=== PATIENT | male | born 1955 | race Two or more races ===

== ENCOUNTER 2024-04-15 20:25 | Emergency (ER) | payer OTHER ==
[~2024-04-15] VITALS: Ht 185.4 cm; Wt 104.5 kg
[2024-04-15] MEDS ORDERED: fentaNYL CITRATE 100 MCG/2 ML VL IM ONE (21:00)
[2024-04-15 21:34] LABS: Eosinophils # (auto) 0.3 10 ^3/uL (0-0.8); Eosinophils % (auto) 2.7 % (0.0-7.0); Hemoglobin 11.3 g/dL (13.5-17.5); Lymphocytes # (auto) 3.6 10 ^3/uL (0.4-5.4); Monocytes # (auto) 0.8 10 ^3/uL (0-1.3); Nucleated Red Blood Cells % 0.1 %
[2024-04-15 21:36] LABS: Basophils # (auto) 0.2 10 ^3/uL (0-0.2); Basophils % (auto) 1.8 % (0.0-2.0); Hematocrit 34.1 % (41.0-53.0); Lymphocytes % (auto) 36.6 % (10.0-50.0); Mean Corpuscular Hemoglobin 26.8 pg (28.0-32.0); Mean Corpuscular Hgb Conc. 33.1 g/dL (32.0-36.0); Mean Corpuscular Volume 80.9 fL (80.0-100.0); Monocytes % (auto) 8.2 % (0.0-12.0); Neutrophils % (auto) 50.7 % (37.0-80.0); Platelet Count (auto) 204 10^3/uL (140-450); Red Blood Cells 4.22 10^6/uL (4.5-5.90); Red Cell Distribution Width 16.7 % (11.8-14.3); White Blood Cell 9.8 10^3/uL (4.4-10.8)
[2024-04-15 22:04] LABS: Alanine Aminotransferase 36 U/L (7-40); Albumin 4.4 g/dL (3.2-4.8); Alkaline Phosphatase 77 U/L (46-116); Anion Gap 12 (5-15); Aspartate Aminotransferase 35 U/L (13-40); BUN/Creatinine Ratio 9.1 (10.0-20.0); Blood Urea Nitrogen 10 mg/dL (9-23); Calcium 9.7 mg/dL (8.7-10.4); Carbon Dioxide 15 mmol/L (20-30); Chloride 101 mmol/L (98-107); Glucose 102 mg/dL (74-106); Sodium 128 mmol/L (136-145)
[2024-04-15 22:05] LABS: Bilirubin, Total 0.3 mg/dL (0.2-1.0); Total Protein 7.5 g/dL (5.7-8.2)
[2024-04-15 22:15] VITALS: BP 115/81; PULSE 94; RESP 17; TEMP 98.3; O2SAT 100
[2024-04-15] MEDS: HYDROcodone-ACET 5/325MG TAB PO ONE (22:25)
[2024-04-15 22:26] LABS: INR 1.04 (0.9-1.15); Partial Thromboplastin Time 26.7 SEC (24.5-34.5)
== END 2024-04-15 22:15 | disposition home or self-care (01) ==
LOC: ER 20:25
DX: R07.89 Other chest pain (principal); W18.39XA Other fall on same level, initial encounter; Y93.89 Activity, other specified; Y92.89 Other specified places as the place of occurrence of the external cause; Y99.8 Other external cause status
CPT/HCPCS: 36415; 71045; 74176; 80053; 85025; 85610; 85730

== ENCOUNTER 2024-04-21 03:27 | Inpatient (IN) | payer OTHER, MEDICAID ==
[~2024-04-21] VITALS: Ht 185.4 cm; Wt 103.3 kg
[2024-04-21] MEDS: MECLIZINE HCL 25 MG TAB ONE (04:13)
[2024-04-21] MEDS: MECLIZINE HCL 25 MG TAB PO ONE (04:13)
[2024-04-21 04:30] LABS: Basophils # (auto) 0.1 10 ^3/uL (0-0.2); Basophils % (auto) 1.3 % (0.0-2.0); Hemoglobin 11.8 g/dL (13.5-17.5); Monocytes # (auto) 0.7 10 ^3/uL (0-1.3)
[2024-04-21 04:32] LABS: Eosinophils # (auto) 0.4 10 ^3/uL (0-0.8); Eosinophils % (auto) 4.7 % (0.0-7.0); Hematocrit 35.8 % (41.0-53.0); Lymphocytes # (auto) 2.3 10 ^3/uL (0.4-5.4); Mean Corpuscular Hemoglobin 26.6 pg (28.0-32.0); Mean Corpuscular Volume 80.6 fL (80.0-100.0); Monocytes % (auto) 8.9 % (0.0-12.0); Neutrophils # (auto) 4.7 10 ^3/uL (1.6-8.6); Neutrophils % (auto) 57.1 % (37.0-80.0); Platelet Count (auto) 323 10^3/uL (140-450); Red Blood Cells 4.44 10^6/uL (4.5-5.90); Red Cell Distribution Width 17.6 % (11.8-14.3); White Blood Cell 8.3 10^3/uL (4.4-10.8)
[2024-04-21 04:55] LABS: Alanine Aminotransferase 24 U/L (7-40); Albumin 4.3 g/dL (3.2-4.8); Alkaline Phosphatase 85 U/L (46-116); Anion Gap 12 (5-15); Aspartate Aminotransferase 18 U/L (13-40); Blood Urea Nitrogen 15 mg/dL (9-23); Calcium 10.3 mg/dL (8.7-10.4); Carbon Dioxide 18 mmol/L (20-30); Chloride 107 mmol/L (98-107); Glucose 118 mg/dL (74-106); Potassium 4.3 mmol/L (3.5-5.1); Sodium 137 mmol/L (136-145)
[2024-04-21 04:56] LABS: Bilirubin, Total 0.4 mg/dL (0.2-1.0); Total Protein 7.6 g/dL (5.7-8.2)
[2024-04-21 05:10] VITALS: PULSE 84; RESP 22; O2SAT 94
[2024-04-21] MEDS: ASPirin 325 MG TAB PO ONE (05:15)
[2024-04-21 05:33] LABS: Urine Bacteria MANY /hpf (None Seen); Urine Blood Negative /uL (Negative); Urine Clarity Clear (Clear); Urine Color Light-Yellow (Yellow); Urine Protein, UAD TRACE (Negative); Urine Specific Gravity 1.023 (1.001-1.035); Urine Urobilinogen Normal (Negative); Urine WBC 144 /hpf (0 - 3); Urine pH 5.5 (5.0-9.0)
[2024-04-21 05:36] LABS: INR 1.03 (0.9-1.15); Partial Thromboplastin Time 24.7 SEC (24.5-34.5); Prothrombin Time 10.9 sec (9.3-11.8)
[2024-04-21 08:20] VITALS: PULSE 73; O2SAT 93
[2024-04-21] MEDS ORDERED: ATOR20TA50 PO (11:26)
[2024-04-21] MEDS ORDERED: TIZA4TAB9 PO (11:26)
[2024-04-21] MEDS ORDERED: METF-370 PO (11:26)
[2024-04-21] MEDS ORDERED: MELO15TA29 PO (11:26)
[2024-04-21] MEDS ORDERED: LOSA-533 PO (11:26)
[2024-04-21] MEDS ORDERED: NITROGLYCERIN 0.4 MG SL TAB SL PRN (12:15)
[2024-04-21 13:05] LABS: Magnesium 1.4 mg/dL (1.6-2.6)
[2024-04-21 13:06] LABS: Phosphorus 3.8 mg/dL (2.4-5.1)
[2024-04-21 13:26] LABS: INR 1.05 (0.9-1.15); Prothrombin Time 11.1 sec (9.3-11.8)
[2024-04-21] MEDS: PANTOPRAZOLE 40 MG/10 ML VIAL INJ IV ONE (14:00)
[2024-04-21 19:19] VITALS: BP 160/99; PULSE 80; RESP 15; RESP 16; TEMP 97.5; O2SAT 97
[2024-04-21 20:00] VITALS: PULSE 73; O2SAT 97
[2024-04-21] MEDS: hydrALAZINE HCL 20 MG/ML VL IV PRN (20:43)
[2024-04-21 21:00] VITALS: BP 138/72; PULSE 86; RESP 20; TEMP 98.1; O2SAT 96
[2024-04-21 21:43] VITALS: BP 145/80
[2024-04-21] MEDS ORDERED: ASPI-325 PO (21:59)
[2024-04-22] VITALS (7 sets, daily range): BP systolic 138–167; BP diastolic 48–113; PULSE 70–91; RESP 19–20; TEMP 97.5–98.4; O2SAT 95–98
[2024-04-22] MEDS: TIZANIDINE HYDROCHLORIDE 2 MG PO PRN (05:34)
[2024-04-22 06:11] LABS: Triglycerides 88 mg/dL (< 150)
[2024-04-22 06:12] LABS: LDL Cholesterol 54 mg/dL (< 100)
[2024-04-22 06:13] LABS: Cholesterol 123 mg/dL (< 200); HDL Cholesterol 43 mg/dL (40-59)
[2024-04-22 10:10] LABS: Alanine Aminotransferase 49 U/L (7-40); Albumin 3.5 g/dL (3.2-4.8); Alkaline Phosphatase 73 U/L (46-116); Anion Gap 10 (5-15); Aspartate Aminotransferase 53 U/L (13-40); BUN/Creatinine Ratio 7.4 (10.0-20.0); Blood Urea Nitrogen 6 mg/dL (9-23); Calcium 9.1 mg/dL (8.7-10.4); Carbon Dioxide 21 mmol/L (20-30); Chloride 112 mmol/L (98-107); Glucose 101 mg/dL (74-106); Potassium 3.7 mmol/L (3.5-5.1); Sodium 143 mmol/L (136-145)
[2024-04-22 10:11] LABS: Bilirubin, Total 0.6 mg/dL (0.2-1.0); Total Protein 5.5 g/dL (5.7-8.2)
[2024-04-22 10:15] LABS: Basophils # (auto) 0 10 ^3/uL (0-0.2); Basophils % (auto) 0.7 % (0.0-2.0); Eosinophils # (auto) 0.1 10 ^3/uL (0-0.8); Eosinophils % (auto) 1.4 % (0.0-7.0); Hematocrit 34.4 % (41.0-53.0); Hemoglobin 11.9 g/dL (13.5-17.5); Lymphocytes # (auto) 1.9 10 ^3/uL (0.4-5.4); Mean Corpuscular Hemoglobin 34.2 pg (28.0-32.0); Mean Corpuscular Hgb Conc. 34.5 g/dL (32.0-36.0); Monocytes # (auto) 0.4 10 ^3/uL (0-1.3); Monocytes % (auto) 7.8 % (0.0-12.0); Neutrophils # (auto) 2.5 10 ^3/uL (1.6-8.6); Neutrophils % (auto) 51.1 % (37.0-80.0); Nucleated Red Blood Cells % 0.2 %; Platelet Count (auto) 152 10^3/uL (140-450); Red Blood Cells 3.48 10^6/uL (4.5-5.90); White Blood Cell 4.9 10^3/uL (4.4-10.8)
[2024-04-22] MEDS: PANTOPRAZOLE 40 MG/10 ML VIAL INJ IV SCH (10:41)
[2024-04-22] MEDS: ASPirin 81 mg TAB PO SCH (10:41)
[2024-04-22] MEDS: cefTRIAXone 1GM/50ML D5W 50 ML IV ONE (10:42)
[2024-04-22] MEDS: ATORVASTATIN 20 MG TAB PO SCH (10:42)
[2024-04-22] MEDS: CLOPIDOGREL BISULFATE 75 MG TAB PO SCH (10:42)
[2024-04-22] MEDS: LOSARTAN POTASSIUM 25 MG TAB PO SCH (10:42)
[2024-04-22] MEDS: LORazepam 2MG/ML-1ML VIAL IV ONE (11:48)
[2024-04-22] MEDS: ENOXAPARIN SOD 40 MG/0.4 ML SYRINGE SC ONE (14:00)
[2024-04-22] MEDS: BACLOFEN 10 MG TAB PO ONE (21:59)
[2024-04-23] VITALS (8 sets, daily range): BP systolic 122–155; BP diastolic 81–100; PULSE 71–90; RESP 16–20; TEMP 97.6–98.2; O2SAT 93–98
[2024-04-23] MEDS: HYDROcodone-ACET 5/325MG TAB PO PRN (02:55)
[2024-04-23 06:37] LABS: Basophils # (auto) 0.1 10 ^3/uL (0-0.2); Basophils % (auto) 1.2 % (0.0-2.0); Eosinophils # (auto) 0.3 10 ^3/uL (0-0.8); Eosinophils % (auto) 4.9 % (0.0-7.0); Hematocrit 36.4 % (41.0-53.0); Hemoglobin 12.2 g/dL (13.5-17.5); Lymphocytes # (auto) 2.1 10 ^3/uL (0.4-5.4); Lymphocytes % (auto) 31.3 % (10.0-50.0); Mean Corpuscular Hgb Conc. 33.6 g/dL (32.0-36.0); Mean Corpuscular Volume 80.6 fL (80.0-100.0); Monocytes # (auto) 0.6 10 ^3/uL (0-1.3); Monocytes % (auto) 9.5 % (0.0-12.0); Neutrophils # (auto) 3.5 10 ^3/uL (1.6-8.6); Neutrophils % (auto) 53.1 % (37.0-80.0); Nucleated Red Blood Cells % 0.1 %; Platelet Count (auto) 298 10^3/uL (140-450); Red Blood Cells 4.51 10^6/uL (4.5-5.90); Red Cell Distribution Width 17.6 % (11.8-14.3); White Blood Cell 6.6 10^3/uL (4.4-10.8)
[2024-04-23 06:44] LABS: Chloride 108 mmol/L (98-107); Potassium 4.2 mmol/L (3.5-5.1); Sodium 139 mmol/L (136-145)
[2024-04-23 06:45] LABS: Anion Gap 9 (5-15); Carbon Dioxide 22 mmol/L (20-30)
[2024-04-23 06:50] LABS: BUN/Creatinine Ratio 17.3 (10.0-20.0); Blood Urea Nitrogen 19 mg/dL (9-23); Glucose 126 mg/dL (74-106)
[2024-04-23 06:56] LABS: Calcium 9.7 mg/dL (8.7-10.4)
[2024-04-23] MEDS: cefTRIAXone 1GM/50ML D5W 50 ML IV SCH (09:16)
[2024-04-23] MEDS: ENOXAPARIN SOD 40 MG/0.4 ML SYRINGE SC SCH (09:18)
[2024-04-23] MEDS ORDERED: DEXTROSE (50%) 50ML SYRG IV PRN (12:15)
[2024-04-23] MEDS: ACCU-CHEK COMFORT CURVE STRIP VI SCH (17:00)
[2024-04-23] MEDS: InsuLIN REG 1unit/0.01ml Soln (100units/ml) SC SCH (17:00)
[2024-04-24] VITALS (8 sets, daily range): BP systolic 120–163; BP diastolic 72–96; PULSE 70–108; RESP 16–18; TEMP 97.6–98.2; O2SAT 95–98
[2024-04-24 05:08] LABS: RPR Non Reactive (Non Reactive)
[2024-04-24 06:27] LABS: Basophils # (auto) 0.1 10 ^3/uL (0-0.2); Hemoglobin 11.4 g/dL (13.5-17.5); Monocytes # (auto) 0.6 10 ^3/uL (0-1.3)
[2024-04-24 06:30] LABS: Basophils % (auto) 1.5 % (0.0-2.0); Eosinophils # (auto) 0.3 10 ^3/uL (0-0.8); Eosinophils % (auto) 5.9 % (0.0-7.0); Hematocrit 34.4 % (41.0-53.0); Lymphocytes # (auto) 2.2 10 ^3/uL (0.4-5.4); Lymphocytes % (auto) 38.9 % (10.0-50.0); Mean Corpuscular Hemoglobin 26.6 pg (28.0-32.0); Mean Corpuscular Hgb Conc. 33.1 g/dL (32.0-36.0); Mean Corpuscular Volume 80.5 fL (80.0-100.0); Monocytes % (auto) 10.8 % (0.0-12.0); Neutrophils # (auto) 2.4 10 ^3/uL (1.6-8.6); Neutrophils % (auto) 42.9 % (37.0-80.0); Nucleated Red Blood Cells % 0.1 %; Platelet Count (auto) 280 10^3/uL (140-450); Red Blood Cells 4.28 10^6/uL (4.5-5.90); Red Cell Distribution Width 17.9 % (11.8-14.3); White Blood Cell 5.7 10^3/uL (4.4-10.8)
[2024-04-24 06:47] LABS: Alanine Aminotransferase 31 U/L (7-40); Alkaline Phosphatase 78 U/L (46-116); Anion Gap 5 (5-15); Aspartate Aminotransferase 21 U/L (13-40); BUN/Creatinine Ratio 16.8 (10.0-20.0); Bilirubin, Total 0.4 mg/dL (0.2-1.0); Blood Urea Nitrogen 19 mg/dL (9-23); Calcium 9.5 mg/dL (8.7-10.4); Carbon Dioxide 25 mmol/L (20-30); Chloride 108 mmol/L (98-107); Glucose 110 mg/dL (74-106); Potassium 4.2 mmol/L (3.5-5.1); Sodium 138 mmol/L (136-145)
[2024-04-24] MEDS ORDERED: IOHEXOL 350 MG/ML 100ML IJ ONE (08:06)
[2024-04-24] MEDS: LOSARTAN POTASSIUM 25 MG TAB PO SCH (09:07)
[2024-04-24] MEDS: BACLOFEN 10 MG TAB PO PRN (13:13)
[2024-04-24] MEDS: KETOROLAC TROMETH 30 MG/ML 1ML VIAL IV PRN (15:21)
[2024-04-24] MEDS: LOSARTAN POTASSIUM 50 MG TAB PO ONE (18:48)
[2024-04-25 01:00] VITALS: BP 156/84; PULSE 85; RESP 18; TEMP 98; O2SAT 95
[2024-04-25] MEDS: MORPHINE SULFATE INJ 2 MG/ml SYRG IV PRN (03:14)
[2024-04-25 05:00] VITALS: BP 134/84; PULSE 78; RESP 18; TEMP 98; O2SAT 96
[2024-04-25 09:00] VITALS: BP 139/82; PULSE 72; RESP 22; TEMP 97.9; O2SAT 97
[2024-04-25] MEDS: LOSARTAN POTASSIUM 25 MG TAB PO SCH (10:41)
[2024-04-25] MEDS ORDERED: MECL1TAB42 PO (11:52)
[2024-04-25] MEDS ORDERED: LOS25T PO (11:52)
[2024-04-25 11:57] LABS: Anion Gap 9 (5-15); Carbon Dioxide 22 mmol/L (20-30); Chloride 106 mmol/L (98-107); Potassium 4.1 mmol/L (3.5-5.1); Sodium 137 mmol/L (136-145)
[2024-04-25 11:58] LABS: Calcium 10.4 mg/dL (8.7-10.4)
[2024-04-25 12:03] LABS: BUN/Creatinine Ratio 16.3 (10.0-20.0); Blood Urea Nitrogen 21 mg/dL (9-23); Glucose 152 mg/dL (74-106)
[2024-04-25 12:04] VITALS: BP 139/83
[2024-04-25 12:20] LABS: Basophils # (auto) 0.1 10 ^3/uL (0-0.2); Basophils % (auto) 1.1 % (0.0-2.0); Eosinophils # (auto) 0.3 10 ^3/uL (0-0.8); Hemoglobin 12.2 g/dL (13.5-17.5); Monocytes # (auto) 0.6 10 ^3/uL (0-1.3); Monocytes % (auto) 9.5 % (0.0-12.0); Nucleated Red Blood Cells % 0.1 %
[2024-04-25 12:22] LABS: Eosinophils % (auto) 4.8 % (0.0-7.0); Hematocrit 36.8 % (41.0-53.0); Lymphocytes % (auto) 31.3 % (10.0-50.0); Mean Corpuscular Hemoglobin 26.8 pg (28.0-32.0); Mean Corpuscular Hgb Conc. 33.3 g/dL (32.0-36.0); Mean Corpuscular Volume 80.5 fL (80.0-100.0); Neutrophils # (auto) 3.5 10 ^3/uL (1.6-8.6); Neutrophils % (auto) 53.3 % (37.0-80.0); Platelet Count (auto) 339 10^3/uL (140-450); Red Blood Cells 4.57 10^6/uL (4.5-5.90); Red Cell Distribution Width 17.9 % (11.8-14.3); White Blood Cell 6.5 10^3/uL (4.4-10.8)
[2024-04-25 13:00] VITALS: BP 140/63; PULSE 60; RESP 20; TEMP 98.3; O2SAT 99
[2024-04-25] MEDS ORDERED: ATORVASTATIN 20 MG TAB PO SCH (22:00)
== END 2024-04-25 13:39 | disposition home or self-care (01) | DRG 149 ==
LOC: ER 03:27 → TELE 12:21 → TELE-EAST 19:20 → EAST 04-25 05:06
PROVIDERS: ADMIT Internal Medicine; ATTEND Internal Medicine
DX: H81.10 Benign paroxysmal vertigo, unspecified ear (principal); N39.0 Urinary tract infection, site not specified; E78.5 Hyperlipidemia, unspecified; I10 Essential (primary) hypertension; K27.7 Chronic peptic ulcer, site unspecified, without hemorrhage or perforation; E66.9 Obesity, unspecified; G89.29 Other chronic pain; E11.9 Type 2 diabetes mellitus without complications; Z79.4 Long term (current) use of insulin; Z79.82 Long term (current) use of aspirin; Z79.899 Other long term (current) drug therapy; Z86.73 Personal history of transient ischemic attack (TIA), and cerebral infarction without residual deficits; Z68.30 Body mass index [BMI] 30.0-30.9, adult; F10.10 Alcohol abuse, uncomplicated
CPT/HCPCS: 36415; 70450; 70498; 70551; 71045; 80048; 80053; 80061; 81001; 82962; 83735; 83880; 84100; 84443; 84484; 85025; 85610; 85730; 86592; 93005; 93306; 93886; 96365; 96375; G0378; J1815; J1885; J2470

== ENCOUNTER 2024-07-21 17:02 | Emergency (ER) | payer OTHER, MEDICAID ==
[~2024-07-21] VITALS: Ht 185.4 cm; Wt 107.4 kg
[~2024-07-21 17:02] MED LIST: ASPI-325 PO; ATOR20TA50 PO; LOS25T PO; LOSA-533 PO; MECL1TAB42 PO; MELO15TA29 PO; METF-370 PO; TIZA4TAB9 PO
[2024-07-21 18:26] VITALS: PULSE 104; RESP 22; O2SAT 97
[2024-07-21] MEDS: OXYCODONE W/ ACETAMINOPHEN 5/325MG TABLET PO ONE (19:29)
[2024-07-21] MEDS: DexAMETHasone SOD PHOS 10MG/1ML VIAL INJ IM ONE (19:30)
[2024-07-21] MEDS: KETOROLAC TROMETH 60MG/2ML VIAL IM ONE (19:30)
--- NOTE | 2024-07-21 20:42 | DVH ---
CLINICAL INDICATION: injury/pain TECHNIQUE: 2 radiographic views of the lumbar spine were obtained. Comparison: None FINDINGS/IMPRESSION: Mildly compressed L4-L3 and L1 age indeterminate. CT will not determine acuity MRI can evaluate for b one edema suggesting acuity. The visualized joint space is well maintained. The alignment is anatomical. There is no radiopaque foreign body.
[2024-07-21] MEDS ORDERED: METH4PAK PO (21:11)
[2024-07-21] MEDS ORDERED: TIZA4TAB9 PO (21:11)
--- NOTE | 2024-07-21 21:12 | ED.PDOC ---
Back pain HPI HPI Comments This is a 68-year-old male presents to the ED chief complaint acute on chronic lower back pain. Patient states low back pain started to increase 2 days ago states after getting adjusted by a friend with a towel he notes pain is different from the usual chronic back pain describes as sharp shooting worse with hyperextension better with flexion 10/10 on pain scale sharp shooting pain nonradicular type pain. Patient reports history of compress discs follows with his PCP had an MRI done is waiting to be scheduled for steroid injections with pain management. He denies numbness, weakness, loss of bowel or bladder control, or saddle anesthesia. Chief Complaint: Back Pain Time Seen by MD: 18:12 Reviewed Notes: Nurses Notes, Medications, Allergies Allergies: Coded Allergies: NO KNOWN ALLERGIES (Unverified , 04/15/24) Home Meds Active Scripts Meclizine HCl (Meclizine 25) 25 Mg Tab, 25 MG PO TIDP PRN for 10 Days, #30 TAB Prov:STEPHANIE MUELLER MD 04/25/24 Losartan Potassium (Losartan Potassium) 25 Mg Tab, 100 MG PO DAILY for 30 Days, #30 TAB 1 Refill Prov:STEPHANIE MUELLER MD 04/25/24 Reported Medications Aspirin (Aspirin Low Dose) 81 Mg Tab, 1 TAB PO 04/21/24 Atorvastatin Calcium (ATORVASTATIN CALCIUM) 20 Mg Tab, 20 MG PO DAILY, TAB 04/21/24 Metformin Hydrochloride (Metformin Hcl) 500 Mg Tab, 500 MG PO IBID for 30 Days, MG 04/21/24 Tizanidine Hydrochloride (Zanaflex) 4 Mg Tab, 2 MG PO TIDP PRN for PAIN, TAB 04/21/24 Losartan Potassium (Losartan Potassium) 25 Mg Tab, 25 MG PO DAILY for 30 Days, MG 04/21/24 Meloxicam (Meloxicam) 15 Mg Tab, 15 MG PO DAILY for PAIN, TAB 04/21/24 Mode of Arrival: Ambulatory Past Medical History PAST MEDICAL HISTORY: DM, High Lipids, HTN, PUD Surgical History: Denies all surgeries Family History Family History: Reviewed,noncontributory to illness Social History Smoker: Non-Smoker Alcohol: Occasionally Drugs: Denies Drug Use Lives In: Home Constitutional: denies: chills, diaphoresis, fatigue, fever, malaise, sweats, weakness, others EENTM: denies: blurred vision, double vision, ear bleeding, ear discharge, ear drainage, ear pain, ear ringing, eye pain, eye redness, hearing loss, mouth pain, mouth swelling, nasal discharge, nose bleeding, nose congestion, nose pain, photophobia, tearing, throat pain, throat swelling, voice changes, others Respiratory: denies: cough, hemoptysis, orthopnea, SOB at rest, shortness of breath, SOB with excertion, stridor, wheezing, others Cardiovascular: denies: chest pain, dizzy spells, diaphoresis, Dyspnea on exertion, edema, irregular heart beat, left arm pain, lightheadedness, palpitations, PND, syncope, others Gastrointestinal: denies: abdomen distended, abdominal pain, blood streaked bowels, constipated, diarrhea, dysphagia, difficulty swallowing, hematemesis, melena, nausea, poor appetite, poor fluid intake, rectal bleeding, rectal pain, vomiting, others Genitourinary: denies: burning, dysuria, flank pain, frequency, hematuria, incontinence, penile discharge, penile sore, pain, testicle pain, testicle swelling, urgency, others Neurological: denies: dizziness, fainting, headache, left sided numbness, left sided weakness, numbness, paresthesia, pre-existing deficit, right sided numbness, right sided weakness, seizure, speech problems, tingling, tremors, weakness, others Musculoskeletal: reports: back pain; denies: gout, joint pain, joint swelling, muscle pain, muscle stiffness, neck pain, others Integumetry: denies: bruises, change in color, change in hair/nails, dryness, laceration, lesions, lumps, rash, wounds, others Allergic/Immunocompromised: denies: Difficulty Healing, Frequent Infections, Hives, Itching, others Hematologic/Lymphatic: denies: anemia, blood clots, easy bleeding, easy bruising, swollen glands, others Endocrine: denies: excessive hunger, excessive sweating, excessive thirst, excessive urination, flushing, intolerance to cold, intolerance to heat, unexpl ained weight gain, unexplained weight loss, others Psychiatric: denies: anxiety, bipolar disorder, depression, hopeless, panic disorder, schizophrenia, sleepless, suicidal, others Physical Exam General Appearance: No Apparent Distress, Normal HEENT: Pharynx Normal Neck: Full Range of Motion, Non-Tender Respiratory: Lungs Clear, No Respiratory Distress, Normal Breath Sounds Cardiovascular: No Murmur, Normal Peripheral Pulses, Regular Rate/Rhythm Breast Exam: Deferred Gastrointestinal: Non Tender, Soft Genitalia: Deferred Pelvic: Deferred Rectal: Deferred Extremities: Normal capillary refill, Normal inspection, Normal range of motion, Non-tender, No pedal edema Musculoskeletal : Location: Bilateral Extremity Location: Back (Tenderness palpated over L1 through L5 without any step-offs or crepitus noted. Noted paraspinal muscles L1 through L5 bilateral with spasms and moderate tenderness on palpation. Negative straight leg raise bilateral. Strength sensory motion intact distal pulses pedal pulses intact.) Apperance: Normal Neurologic: Alert, environmental protection specialist II-XII nml as Tested, No Motor Deficits, Normal Affect, Normal Mood, No Sensory Deficits Cerebellar Function: Normal Reflexes: Normal Skin: Dry, Normal Color, Warm Lymphatic: No Adenopathy Was a procedure done? Was a procedure done?: No Back Pain Differential Dx Differential Diagnosis: Fracture, Musculoskeletal Pain X-Ray, Labs, Meds, VS Vital Signs Date Time Temp Pulse Resp B/P (MAP) Pulse Ox O2 Delivery O2 Flow Rate FiO2 07/21/24 18:26 97.7 104 22 169/91 (117) 97 97.7 07/21/24 18:26 104 22 97 Room Air* 0 21 07/21/24 17:34 97.7 104 22 169/91 (117) 97 Current Medications Medications (Trade) Dose Ordered Sig/Cristiana Route Start Time Stop Time Status Last Admin Ketorolac Tromethamine (Toradol Injection) 60 mg ONCE ONCE IM 07/21/24 19:15 07/21/24 19:16 DC 07/21/24 19:30 Dexamethasone Sodium Phosphate (Decadron Injection) 10 mg ONCE ONCE IM 07/21/24 19:15 07/21/24 19:16 DC 07/21/24 19:30 Oxycodone/ Acetaminophen (Percocet 5/ 325MG Tablet) 1 tab ONCE ONCE PO 07/21/24 19:15 07/21/24 19:16 DC 07/21/24 19:29 X-Ray, Labs, Meds, VS Comment Patient given Toradol 60 mg IM, Decadron 10 mg IM and Percocet 5 mg p.o. he notes moderate improvement in his pain and function is requesting discharge at this time. Lumbar spine x-ray shows L3-L4 mildly compressed fracture and L1 indeterminate of age. Discussed with patient advised to follow up with his PCP on Tuesday for MRI referral. Consider possibly acute. Advised on precautions of compression fracture. Advised to return to the ER for increasing pain, numbness, weakness, loss of bowel bladder control or saddle anesthesia patient indicated understanding agrees with discharge plan of care. Time of 1ST Reevaluation: 21:09 Reevaluation 1ST: Improved Patient Education/Counseling: Diagnosis, Treatment, Prognosis, Need For Follow Up Family Education/Counseling: Diagnosis, Treatment, Prognosis, Need For Follow Up Departure 1 Departure Time of Disposition: 21:09 Impression: Primary Impression: Compression fracture Additional Impressions: Lumbar sprain Qualified Codes: S33.5XXA - Sprain of ligaments of lumbar spine, initial encounter Musculoskeletal pain Disposition: HOME / SELF CARE / HOMELESS Condition: Stable e-Prescriptions Tizanidine Hydrochloride (Zanaflex) 4 Mg Tab 1 TAB PO BID PRN for 7 Days, #14 TAB Prov: RAHEL OSHEA 07/21/24 Methylprednisolone (Medrol Dosepak) 4 Mg James 4 MG PO UD for 6 Days, #21 TAB UAD Prov: RAHEL OSHEA 07/21/24 Discharged With: Relative (Sibling) Critical Care Note Critical Care Time?: No Stability Stability form required: RAHEL Moyer Jul 21, 2024 21:12
[2024-07-21 21:26] VITALS: BP 144/93; PULSE 78; RESP 20; TEMP 98.1; O2SAT 97
== END 2024-07-21 21:29 | disposition home or self-care (01) ==
LOC: ER 17:02
DX: S32.038A Other fracture of third lumbar vertebra, initial encounter for closed fracture (principal); S32.048A Other fracture of fourth lumbar vertebra, initial encounter for closed fracture; I10 Essential (primary) hypertension; E11.9 Type 2 diabetes mellitus without complications; E78.5 Hyperlipidemia, unspecified; Z87.11 Personal history of peptic ulcer disease; Z79.1 Long term (current) use of non-steroidal anti-inflammatories (NSAID); Z79.899 Other long term (current) drug therapy; X58.XXXA Exposure to other specified factors, initial encounter; Y93.89 Activity, other specified; Y92.89 Other specified places as the place of occurrence of the external cause; Y99.8 Other external cause status
CPT/HCPCS: 72100; 96372; 99284; J1100; J1885